=== PATIENT | female | born 1965 | race Caucasian/White ===

== ENCOUNTER → 2024-03-28 | Outpatient (CLI) | payer OTHER ==
--- NOTE | 2024-03-29 15:39 | BD ---
"EXAMINATION TYPE: Axial Bone Density DATE OF EXAM: 03/28/2024 CLINICAL HISTORY: 58 years old Female. ICD-10 CODE: N951 MENOPAUSAL AND FEMALE CLIMACTERIC STATES , Additional History: Height: 61 Weight: 96.8 FRAX RISK QUESTIONS: Alcohol (3 or more units per day): no Family History (Parent hip fracture): no Glucocorticoids (More than 3mos): no (Ex: prednisone, prednisolone, methylprednisolone, dexamethasone, and hydrocortisone). History of Fracture in Adulthood: no Secondary Osteoporosis: 1. Type 1 Diabetes: no 2. Hyperthyroidism: no 3. Menopause before 45: no 4. Malnutrition: no 5. Chronic liver disease: no Rheumatoid Arthritis: no Current Tobacco Use: no RISK FACTORS HISTORY OF: Surgery to Spine/Hip(right/left)/Wrist (right/left): no MEDICATIONS: Thyroid Medications: synthroid How Long: since age 13 EXAM MEASUREMENTS: Bone mineral densitometry was performed using the [id number] | [employer]. Bone mineral density as measured about the Lumbar spine is: ----- L1-L4(G/cm2): 0.888 T Score Values are as follows: ----- L1: -2.6 ----- L2: -3.0 ----- L3: -2.4 ----- L4: -2.0 ----- L1-L4: -2.4 Z Score Values are as follows: ----- L1: -0.7 ----- L2: -1.1 ----- L3: -0.6 ----- L4: -0.2 ----- L1-L4: -0.6 Bone mineral density : baseline Bone mineral density about the R hip (g/cm2): 0.823 Bone mineral density about the L hip (g/cm2): 0.812 T Score values are as follows: -----R Neck: -2.3 -----L Neck: -2.4 -----R Total: -1.5 -----L Total: -1.6 Z Score values are as follows: -----R Neck: -0.6 -----L Neck: -0.8 -----R Total: -0.1 -----L Total: -0.2 Bone mineral density : baseline FRAX%s: The graph provided illustrates a 9.4% chance for a major osteoporotic fx and a 1.9% chance fo r the hips probability for fx in 10 years time. IMPRESSION: Osteoporosis (T Score less than -2.5). There is increased fracture risk and therapy is usually indicated based on age. Re-Screen 1-2 years. NOTE: T-SCORE=SD OF THE YOUNG ADULT MEAN. [facility], , 03/29/2024 3:37 PM"
== END | disposition home or self-care (01) ==
LOC: RADBDWWP 13:36
PROVIDERS: ATTEND Family Medicine
DX: M81.0 Age-related osteoporosis without current pathological fracture (principal); N95.1 Menopausal and female climacteric states; M85.89 Other specified disorders of bone density and structure, multiple sites
CPT/HCPCS: 77080